=== PATIENT | male | born 1945 | race Caucasian/White ===

== ENCOUNTER → 2016-08-30 | Outpatient (CLI) | payer MEDICARE, BC ==
[2016-08-30 11:14] LABS: URINE BILIRUBIN - DIPSTICK NEGATIVE (NEG); URINE BLOOD NEGATIVE (NEG)
[2016-08-30 11:28] LABS: HEMOGLOBIN 12.3 g/dL (14.1-18.0); LYMPH # 1.1 K/mm3 (0.7-4.5); LYMPH % 20.8 % (10-50)
[2016-08-30 11:38] LABS: URINE SQUAMOUS CELLS OCC #/hpf (OCC)
[2016-08-30 12:23] LABS: BUN 37 mg/dL (7-18); GFR (ESTIMATED) 37 ML/MIN (>60)
== END ==
LOC: LAB 10:57
PROVIDERS: Internal Medicine Nephrology
DX: N18.3 Chronic kidney disease, stage 3 (moderate) (principal)